=== PATIENT | female | born 1945 | race Caucasian/White ===

== ENCOUNTER → 2016-08-10 10:10 | Outpatient (CLI) | payer MEDICARE, OTHER | END | disposition home or self-care (01) | LOC: D.US 10:10 | DX: Z87.442 Personal history of urinary calculi (principal) ==

== ENCOUNTER 2017-12-22 06:48 | Outpatient (CLI) | payer MEDICARE, OTHER ==
[~2017-12-22] VITALS: Ht 167.6 cm; Wt 79.5 kg
--- NOTE | ~2017-12-22 | HEMODYNAMI ---
PATIENT:JULIANNA MALDONADO MEDICAL RECORD: [id number] : 45 LOCATION:D.CAT ADMISSION DATE: 12/22/17 Generatedon:12/22/20178:45 Patient name: JULIANNA MALDONADO Patient #: [id number] SSN: : 1945 Date of study: 12/22/2017 Page: Of Hemodynamic Procedure Report Patient Data Patient Demographics Procedure consent was obtained First Name: JULIANNA Gender: Female Last Name: ERICA : 1945 [facility] Initial: C Age: 72 year(s) Patient #: [id number] Race: Unknown Additional ID: [id number] Contact details [address]: [address] [place] [address] rd State: [place] City: [place] Zip code: [address] Past Medical History Allergies Allergen Reaction Date Comments Reported Other allergy 12/22/2017 PCN, CODEINE, IODINE Admission Admission Data Admission Date: 12/22/2017 Admission Time: 6:48 Admit Source: Other Height (in.): 5.6 BSA: 0.32 (m2) Height (cm.): 14.22 BMI: 3990.64 (kg/m2) Weight (lbs.): 178 Weight (kg.): 80.74 Procedure Procedure Types Cath Procedure Diagnostic Procedure C [facility] w/Coronaries Sedation Charges Moderate Sedation up to 15 minutes Procedure Description Procedure Date Procedure Date: 12/22/2017 Procedure Start Time: 8:27 Procedure End Time: 8:40 Procedure Staff Name Function Tani Thompson MD Performing Physician Celso Nevarez RT Scrub Erika Resendez RT Monitor Trent May RN Nurse Procedure Data Cath Procedure Fluoroscopy Diagnostic fluoroscopy Total fluoroscopy Time: 2.2 time: 2.2 min min Diagnostic fluoroscopy Total fluoroscopy dose: 379 dose: 379 mGy mGy Contrast Material Contrast Material Type Amount (ml) Isovue 300 77 Entry Location Entry Primary Successful Side Size Upsize Upsize Entry Closure Succes sful Closure Location (Fr) 1 (Fr) 2 (Fr) Remarks Device Remarks Femoral Right 5 Fr Exoseal artery Estimated blood loss: 5 ml Diagnostic catheters Device Type Used For End Catheter Placement MULTIPACK JL 4.0 5Fr Procedure catheter MULTIPACK 3DRC 5Fr Procedure catheter MULTIPACK Pigtail 5 Fr Procedure catheter Procedure Complications No complications Procedure Medications Medication Administration Route Dosage 0.9% NaCl I.V. 100 ml/hr Oxygen etCO2 Nasal cannula 2 l/min Heparin Flush Bag added to field 2 bags (1000units/500ml NS) Lidocaine 2% added to field 20 Versed I.V. 1 mg Fentanyl I.V. 50 mcg Versed I.V. 1 mg Fentanyl I.V. 50 mcg Versed I.V. 1 mg Hemodynamics Rest BSA: 0.32 (m2) O2 Consumption: Estimated: 29.45 (ml/min) O2 Consumption indexed: Estimated:92.03 (ml/min/m) Heart Rate: 71 (bpm) Pressure Samples Time Site Value (mmHg) Purpose Heart Use Rate(bpm) 8:36 LV 121/4,18 Snapshot 73 8:36 AO 118/60(86) Pullback 74 8:36 LV 126/4,22 Pullback 74 Gradients Valve Time Site 1 Site 2 Mean SEP/DFP Peak To Heart Use (mmHg) (sec/min) Peak Rate (mmHg) (bpm) Aortic 8:36 LV AO 6 21 8 74 126/4,22 118/60(86) Calculations Valve P-P Mean Valve Index Valve Source Name Gradient Area Flow (cm2) Aortic 8 6 8 6 Snapshots Pre Cath Intra NCS Post Cath Vital Signs Time Heart Resp SPO2 etCO2 NIBP (mmHg) Rhythm Pain Sedation Rate (ipm) (%) (mmHg) Status Level (bpm) 8:15:19 71 12 100 0 149/80(126) NSR 0 (11) 10(A) , No pain 8:20:02 70 19 99 30.9 138/73(106) NSR 0 (11) 10(A) , No pain 8:24:41 69 24 96 33.9 127/70(98) NSR 0 (11) 10(A) , No pain 8:29:17 69 12 96 36.2 117/68(98) NSR 0 (11) 10(A) , No pain 8:33:56 74 18 97 37.7 120/69(96) NSR 0 (11) 9(A) , No pain 8:38:34 76 19 98 40 122/68(97) NSR 0 (11) 9(A) , No pain Medications Time Medication Route Dose Verified Delivered Reason Notes Effe ctiveness by by 8:19:57 0.9% NaCl I.V. 100 Trent Trent Per ml/hr Lalo May physician RN RN 8:20:07 Oxygen etCO2 2 Trent Trent Per Nasal l/min Lalo Schmitzigan physician cannula RN RN 8:20:19 Heparin Flush added 2 Trent Trent used for Bag to bags Lorigan Lorigan procedure (1000units/500ml field RN RN NS) 8:20:31 Lidocaine 2% added 20ml Trent Trent for local to vial Lorigan Lorigan anesthetic field RN RN 8:20:42 Versed I.V. 1 mg Trent Trent for Lorigan Lorigan sedation RN RN 8:20:50 Fentanyl I.V. 50 Trent Trent for mcg Lorigan Lorigan sedation RN RN 8:23:21 Versed I.V. 1 mg Trent Trent for Lorigan Lorigan sedation RN RN 8:23:31 Fentanyl I.V. 50 Trent Trent for mcg Lorigan Lorigan sedation RN RN 8:27:29 Versed I.V. 1 mg Trent Trent for Lorigan Lorigan sedation RN valuation manager Log Time Note 7:52:31 Admit Source: Other 7:52:49 Diagnostic Cath status Elective 7:52:51 Celso Suit RT(R) sent for patient. Start room use. 7:52:53 Time tracking: Regular hours (M-F 7:00 - 5:00) 7:52:58 Plan of Care:Hemodynamics will remain stable., Cardiac rhythm will remain stable., Comfort level will be maintained., Respiratory function will remain adequate., Patient/ family verbilizes understanding of procedure., Procedure tolerated without complication., Recovers from procedure without complications.. 8:06:23 H&P Date Dictated: 12/22/2017 Within 30 days and on chart., H&P Addendum completed by physician on day of procedure. (MUST COMPLETE FOR ALL OUTPATIENTS). 8:07:04 Patient allergic to Other allergyPCN, CODEINE, IODINE 8:07:36 Patient Height : 5.6 inches 8:08:20 Patient Weight : 178 lbs 8:09:25 Patient received from Pre/Post Procedure Room to CCL 1 Alert and oriented. Tansferred to table in Supine position. 8::26 Warm blankets applied, and josh hugger turned on for patient comfort. 8:: Correct patient and procedure confirmed by team. 8::28 Signed procedure consent form obtained from patient. 8::30 ECG and BP/O2 sat monitors applied to patient. 8:14:26 Vital chart was started 8:15:01 Baseline sample Acquired. 8:16:19 Rhythm: sinus rhythm 8:16:20 Full Disclosure recording started 8:16:24 Pre-procedure instructions explained to patient. 8:16:24 Pre-op teaching completed and patient verbalized understanding. 8:16:26 Family in patients room. 8:16:29 Patient NPO since Midnight. 8:16:31 Is the patient allergic to Iodine/contrast media? Yes. 8:16:32 Was the patient premedicated? Yes 8:16:34 Is patient on blood thinner?No 8:16:36 Patient diabetic? No. 8:16:39 Patient not . Patient is over age 55. 8:16:48 Previous problem with sedation/anesthesia? Yes NAUSEA SOMETIMES 8:16:50 Snore? No 8:16:52 Sleep apnea? No 8:17:45 Deviated septum? No 8:17:47 Opens mouth fully? Yes 8:17:48 Sticks out tongue? Yes 8:17:49 Airway obstruction? No ? 8:17:51 Dentures? No ? 8:17:54 Pre procedure: right dorsailis pedis pulse 2+ Normal; easily identifiable; not easily obliterated 8:17:58 Patient pain scale 0/10 ?. 8:18:24 IV patent on arrival in left hand with 0.9% NaCl at [facility]. 8:18:58 Right groin area was prepped with chlora-prep and draped in sterile fashion 8:18:59 Alarms reviewed by R. N. 8:19:00 Sharps counted by scrub and verified by R.N. 8:19:01 --------ALL STOP TIME OUT------ 8:19:01 Final Timeout: patient, procedure, and site verified with staff and physician. All members of the team are in agreement. 8:19:03 Right groin site verified by team. 8:19:08 Physical assessment completed. ASA score P 2 - A patient with mild systemic disease as per Tani Thompson MD. 8:19:13 Sedation plan: IV Moderate Sedation Medication:Versed, Fentanyl 8:19:57 0.9% NaCl 100 ml/hr I.V. was administered by Trent May RN; Per physician; 8:20:07 Oxygen 2 l/min etCO2 Nasal cannula was administered by Trent May RN; Per physician; 8:20:19 Heparin Flush Bag (1000units/500ml NS) 2 bags added to field was administered by Trent May RN; used for procedure; 8:20:31 Lidocaine 2% 20ml vial added to field was administered by Trent May RN; for local anesthetic; 8:20:42 Versed 1 mg I.V. was administered by Trent May RN; for sedation; 8:20:50 Fentanyl 50 mcg I.V. was administered by Trent May RN; for sedation; 8:22:33 Zero performed for pressure channel P1 8:23:21 Versed 1 mg I.V. was administered by Trent May RN; for sedation; 8:23:23 Zero performed for pressure channel P1 8:23:31 Fentanyl 50 mcg I.V. was administered by Trent May RN; for sedation; 8:24:51 Use device set Femoral Dx 8:24:57 ACIST Syringe (46464) opened to sterile field. 8:24:58 Bag Decanter (2002) opened to sterile field. 8:25:00 ACIST Manifold (76252) opened to sterile field. 8:25:01 ACIST Hand Control (79316) opened to sterile field. 8:25:02 Tegaderm 4 x 4 (1626W) opened to sterile field. 8:25:04 Medline Cath Pack ([id number]) opened to sterile field. 8:25:07 DIAGNOSTIC Multipack 5Fr catheter set ([id number]) opened to sterile field. 8:26:52 DIAGNOSTIC WIRE .035 260cm J wire (372704) opened to sterile field. 8:26:55 SHEATH Prelude 5Fr 0.035 (GUP-5P-06-035) opened to sterile field. 8:27:08 Procedure started. 8:27:16 Local anesthetic to right femoral artery with Lidocaine 2% by Tani Thompson MD.INITIAL ACCESS ONLY 8:27:29 Versed 1 mg I.V. was administered by Trent May RN; for sedation; 8:28:37 A 5 Fr sheath was inserted into the Right Femoral artery 8:29:11 A MULTIPACK JL 4.0 5Fr catheter was advanced over the wire and used for Procedure. 8:30:53 LCA angiography performed. 8:31:01 Catheter exchanged over wire. 8:31:25 A MULTIPACK 3DRC 5Fr catheter was advanced over the wire and used for Procedure. 8:33:32 RCA angiography performed. 8:33:48 Catheter exchanged over wire. 8:34:18 A MULTIPACK Pigtail 5 Fr catheter was advanced over the wire and used for Procedure. 8:36:11 LV gram done using FOSTER 8:36:12 Injector settings: Ml/sec: 10, Volume: 20, 8:36:14 LV hemodynamics recorded. 8:36:23 EF : 50 % 8:36:46 Catheter removed. 8:36:48 EXOSEAL 5Fr (EX500) opened to sterile field. 8:37:53 Sheath removed intact; hemostasis achieved with Exoseal to the Right Femoral artery. 8:38:28 Procedure ended.(Physican Out) 8:38:48 Fluoroscopy time 02.20 minutes. 8:38:52 Fluoroscopy dose: 379 mGy 8:38:52 Flurop Dose total: 379 8:38:56 Contrast amount:Isovue 300 77ml. 8:39:09 Sharps counted by scrub and verified by R.N. 8:39:14 Post-op/insertion site Right Femoral artery dressed using a 4 x 4 and Tegaderm. 8:39:17 Post right femoral artery:stable, soft, clean and dry 8:39:23 Post-procedure physical assessment completed. ASA score P 2 - A patient with mild systemic disease as per Tani Thompson MD. 8:39:28 Post procedure rhythm: sinus rhythm 8:39:31 Estimated blood loss: 5 ml 8:39:32 Post procedure instruction explained to patient.Patient verbalizes understanding. 8:39:32 Patient needs reinforcement of post procedure teaching. 8:40:08 Procedure type changed to Cath procedure, Diagnostic procedure, LHC, LHC w/Coronaries, Sedation Charges, Moderate Sedation up to 15 minutes 8:40:27 Procedure and supply charges have been captured, reviewed, submitted and are correct. 8:40:30 Procedure Complication : No complications 8:40:32 Vital chart was stopped 8:40:32 See physician's report for complete and final results. 8:40:36 Report given to Pre/Post Procedure Room. 8:40:38 Patient transfered to Pre/Post Procedure Room with Bed. 8:40:40 Procedure ended. 8:40:40 Full Disclosure recording stopped 8:40:43 End room use (Document Last) Device Usage Item Name Manufacture Quantity Catalog Number Hospital Part Current M inimal Lot# / Charge Number Stock Stock Serial# Code ACIST Syringe Acist 1 12213 [id number] 311778 223261 2 0 (70849) Medical Systems Skadoit Bag Decanter Microtek 1 2001S 252893 41257 082030 5 (2001S) Medical Inc. ACIST Manifold Acist 1 51110 987861 153477 834088 5 (43033) Medical Systems Inc ACIST Hand Acist 1 71053 543222 754422 359113 5 Control (05964) Medical Systems Inc Tegaderm 4 x 4 3M 1 1626W 028853 202712 050332 5 (1626W) Medline Cath Cardinal 1 [id number] 013217 26463 941406 5 Pack Health ([id number]) DIAGNOSTIC Cardinal 1 [id number] 643054 16018 669096 3 0 Multipack 5Fr Health catheter set ([id number]) DIAGNOSTIC WIRE St Cam 1 102572 466651 885837 908706 3 0 .035 260cm J wire (064186) SHEATH Prelude Merit 1 [id number]-1F-69-035 129966 868371 141148 5 5Fr 0.035 Medical ([id number]-[id number]) MULTIPACK JL Cardinal 1 245079 5 4.0 5Fr Health catheter MULTIPACK 3DRC Cardinal 1 770026 5 5Fr catheter Health MULTIPACK Cardinal 1 [id number] 5 Pigtail 5 Fr Health catheter EXOSEAL 5Fr Cardinal 1 EX500 945162 244260 735005 1 0 (EX500) Health Signature Audit [place] Stage Time Signature Unsigned Intra-Procedure 12/22/2017 Erika Resendez 8:45:31 AM RT(R) Signatures Monitor : Erika Resendez Signature : RT Date : Time : [facility] [address] [place] [address]
[2017-12-22] MEDS ORDERED: PROZAC40 MG PO (07:35)
[2017-12-22] MEDS ORDERED: VALIUM5 MG PO (07:36)
[2017-12-22] MEDS ORDERED: PROTONIX20 MG PO (07:36)
[2017-12-22] MEDS ORDERED: MULTIPLE VITAMI1 TA1 PO (07:37)
[2017-12-22] MEDS ORDERED: BAYER CHEWABLE81 MG PO (07:37)
[2017-12-22] MEDS ORDERED: MOBIC7.5 MG PO (07:37)
[2017-12-22 08:03] LABS: BASOPHILS 0 % (0-2); EOSINOPHILS 0.2 % (0-7); HEMATOCRIT 36.9 % (36.0-48.0); HEMOGLOBIN 12.3 g/dL (12-16); IMMATURE GRANULOCYTES 0.2 % (0-5); LYMPHOCYTES 23.2 % (15-50); MCH 30.9 pg (26.0-34.0); MCHC 33.3 g/dL (31.0-37.0); MCV 92.7 fL (80.0-100.0); MEAN PLATELET VOLUME 10.7 fL (7.4-10.4); MONOCYTES 1.4 % (2-11); PLATELET COUNT 304 10x3/uL (130-400); RBC 3.98 10x6/uL (4.00-5.40); RDW 12.6 % (11.5-14.5); WBC 5.2 10x3/uL (4.8-10.8)
[2017-12-22 08:05] VITALS: BP 142/70; Ht 167.6 cm; Wt 79.5 kg
[2017-12-22 08:22] LABS: ANION GAP 14.1 mmol/L (8-16); CALCIUM 9.6 mg/dL (8.5-10.1); CARBON DIOXIDE 23.4 mmol/L (21.0-32.0); CREATININE - SERUM 0.9 mg/dL (0.6-1.3); POTASSIUM - SERUM 4.5 mmol/L (3.5-5.1)
== END 2017-12-22 10:56 | disposition home or self-care (01) ==
LOC: D.CATH 06:48
PROVIDERS: Internal Medicine Cardiovascular Disease
DX: R07.9 Chest pain, unspecified (principal); Z82.49 Family history of ischemic heart disease and other diseases of the circulatory system; Z79.82 Long term (current) use of aspirin; Z79.1 Long term (current) use of non-steroidal anti-inflammatories (NSAID); Z79.899 Other long term (current) drug therapy; Z88.5 Allergy status to narcotic agent; Z88.0 Allergy status to penicillin; Z88.8 Allergy status to other drugs, medicaments and biological substances; Z01.812 Encounter for preprocedural laboratory examination